=== PATIENT | female | born 1980 | race Caucasian/White ===

== ENCOUNTER → 2017-05-01 | Outpatient (CLI) | payer MEDICAID ==
[~2017-05-01] MED LIST: ALPR1T; CIPR7.5D2 RIGHT EAR; CTLP20T; DIPH-681 PO; FAMO20TA5 PO; METH5TAB PO; ONDA-42 SL; PROP40TA5 PO; TRZ50T; ZOLP10TA5 PO
[2017-05-01 13:18] LABS: BASOPHILS # (AUTO) 0.1 10^3/uL (0.0-0.1); BASOPHILS % (AUTO) 1 % (0-10); EOSINOPHILS # (AUTO) 0.1 10^3/uL (0.0-0.3); EOSINOPHILS % (AUTO) 1 % (0-10); LYMPHOCYTES # (AUTO) 1.6 X 10^3 (1.0-4.0); LYMPHOCYTES % (AUTO) 35 % (12-44); MEAN CORPUSCULAR HEMOGLOBIN 33 PG (25-34); MEAN CORPUSCULAR HGB CONC 35 G/DL (32-36); MEAN CORPUSCULAR VOLUME 92 FL (80-99); MEAN PLATELET VOLUME 9.6 FL (7.4-10.4); MONOCYTES # (AUTO) 0.3 X 10^3 (0.0-1.0); MONOCYTES % (AUTO) 6 % (0-12); NEUTROPHILS # (AUTO) 2.7 X 10^3 (1.8-7.8); NEUTROPHILS % (AUTO) 57 % (42-75); PLATELET COUNT 218 10^3/uL (130-400); RED CELL DISTRIBUTION WIDTH 12.4 % (10.0-14.5); WHITE BLOOD COUNT 4.7 10^3/uL (4.3-11.0)
[2017-05-01 13:35] LABS: ALANINE AMINOTRANSFERASE 13 U/L (0-55); ALBUMIN 4.1 GM/DL (3.2-4.5); ANION GAP 7 MMOL/L (5-14); ASPARTATE AMINO TRANSFERASE 15 U/L (5-34); BILIRUBIN,TOTAL 0.3 MG/DL (0.1-1.0); BLOOD UREA NITROGEN 9 MG/DL (7-18); BUN/CREATININE RATIO 11; CALCIUM 8.9 MG/DL (8.5-10.1); CARBON DIOXIDE 25 MMOL/L (21-32); CHLORIDE 109 MMOL/L (98-107); CREATININE SERUM 0.79 MG/DL (0.60-1.30); GFR ESTIMATED > 60; GLUCOSE 96 MG/DL (70-105); POTASSIUM 3.5 MMOL/L (3.6-5.0); SODIUM 141 MMOL/L (135-145); TOTAL PROTEIN 6.6 GM/DL (6.4-8.2)
[2017-05-01 13:56] LABS: THYROID STIMULATING HORMONE 0.31 UIU/ML (0.35-4.94)
== END ==
LOC: LAB 13:07
PROVIDERS: ATTEND Family Medicine
DX: E05.90 Thyrotoxicosis, unspecified without thyrotoxic crisis or storm (principal)
CPT/HCPCS: 36415; 80053; 84439; 84443; 85025

== ENCOUNTER → 2018-06-10 | Outpatient (CLI) | payer MEDICAID ==
[2018-06-10 11:57] LABS: ALANINE AMINOTRANSFERASE 18 U/L (0-55); ALBUMIN 4.2 GM/DL (3.2-4.5); ALKALINE PHOSPHATASE 64 U/L (40-136); BILIRUBIN,TOTAL 0.4 MG/DL (0.1-1.0); BUN/CREATININE RATIO 16; CALCIUM 8.8 MG/DL (8.5-10.1); CARBON DIOXIDE 23 MMOL/L (21-32); CHLORIDE 108 MMOL/L (98-107); GFR ESTIMATED > 60; GLUCOSE 101 MG/DL (70-105); POTASSIUM 3.8 MMOL/L (3.6-5.0); SODIUM 138 MMOL/L (135-145); TOTAL PROTEIN 6.3 GM/DL (6.4-8.2)
--- NOTE | 2018-06-10 12:59 | Diagnostic Imaging Report ---
INDICATION: Knee pain, pain below the knee cap for the past 4-5 months. TECHNIQUE: 3 views of the right knee CORRELATION STUDY: None FINDINGS: The joint spaces are maintained. The articular surfaces are smooth and preserved. There is no acute bony abnormality. Soft tissues are unremarkable. IMPRESSION: 1. Unremarkable examination of the right knee. Dictated by: Dictated on workstation # [id number]
== END ==
LOC: RAD 11:27
PROVIDERS: ATTEND Family Medicine
DX: E05.90 Thyrotoxicosis, unspecified without thyrotoxic crisis or storm (principal); M25.561 Pain in right knee
CPT/HCPCS: 36415; 73562; 80053; 84436; 84443

== ENCOUNTER 2019-04-04 04:02 | Emergency (ER) | payer MEDICAID ==
[~2019-04-04] VITALS: Ht 170.2 cm; Wt 76.2 kg
[2019-04-04] MEDS ORDERED: cefTRIAXone 1,000 MG/2.86 ml vial (IM ONLY) IM ONE (04:30)
[2019-04-04] MEDS ORDERED: LIDOCAINE 1% INJ 20 ML 20 ML VIAL INJ ONE (04:30)
[2019-04-04] MEDS ORDERED: KETOROLAC 30 MG/ML VIAL IM ONE (04:30)
--- NOTE | 2019-04-04 04:35 | ED Integumentary General ---
General Chief Complaint: Bite-Animal/Human/Insect Stated Complaint: LEFT ARM SWOLLEN Source: patient Exam Limitations: no limitations History of Present Illness Date Seen by Provider: Apr 04, 2019 Time Seen by Provider: 04:20 Initial Comments Patient presents to ER by private conveyance with chief complaint that she has some swelling in her left forearm. She has a spot in the center left forearm that she thinks maybe an insect bit her Thursday morning, yesterday. She went to the [facility] walk-in clinic and they put her on Bactrim and encourage her to use ice. 70 ice next the pain feel better. She has not used any Tylenol or ibuprofen or other NSAIDs. She says the pain woke her up around 3:00 in the morning and she was unable to get the pain under control swelling. She's been keeping it above the level of her heart. No fevers chills nausea vomiting or diarrhea. She did grape picker the antibiotics. She rates the pain as a 7 out of 10. Allergies and Home Medications Allergies Coded Allergies: Bruce Known Allergies (Unverified Allergy, Mild, 01/22/10) Home Medications Alprazolam 1 Mg Tablet, Q6H, (Reported) Ciprofloxacin Hcl/Dexameth 7.5 Ml Drops.susp, 5 DROPS RIGHT EAR BID Prescribed by: DESTINI GRAF on 05/30/151957 Diphenoxylate/Atropine 1 Ea Tablet, 1 EA PO Q6H PRN for DIARRHEA Prescribed by: DESTINI GRAF on 05/30/151957 Famotidine 20 Mg Tablet, 1 EACH PO BID Prescribed by: DESTINI GRAF on 05/30/151957 Methimazole 5 Mg Tablet, 5 MG PO DAILY, (Reported) Ondansetron Hcl 4 Mg Tab, 4-8 MG SL Q6H PRN for NAUSEA/VOMITING FOR NAUSEA AND VOMITING Prescribed by: DESTINI GRAF on 05/30/151957 Tramadol HCl 50 Mg Tablet, 50 MG PO Q6H PRN for BREAKTHROUGH PAIN Prescribed by: MERRY MINER on 04/04/19 044 Zolpidem Tartrate 10 Mg Tablet, 10 MG PO HS, (Reported) Patient Home Medication List Home Medication List Reviewed: Yes Review of Systems Review of Systems Constitutional: No chills, No diaphoresis EENTM: No hearing loss, No ear pain Respiratory: No cough, No short of breath Cardiovascular: No chest pain, No edema Gastrointestinal: No abdominal pain, No constipation, No diarrhea Genitourinary: No discharge, No dysuria Past Noytfmf-Oarxfe-Ldzdjm Hx Patient Social History Alcohol Use: Denies Use Recreational Drug Use: No Smoking Status: Current Everyday Smoker Type Used: Cigarettes (one pack per day) Recent Foreign Travel: No Contact w/Someone Who Travel: No Seasonal Allergies Seasonal Allergies: No Past Medical History Gallbladder, 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 Scoliosis Hyperthyroidism Anxiety, Depression Physical Exam Vital Signs Vital Signs - First Documented 04/04/19 04:23 Temp 97.4 Pulse 84 Resp 18 B/P (MAP) 110/75 (87) Capillary Refill : General Appearance: WD/WN, mild distress HEENT: normal ENT inspection, pharynx normal Neck: full range of motion, normal inspection Cardiovascular: normal peripheral pulses, regular rate, rhythm Respiratory: no respiratory distress, no accessory muscle use Gastrointestinal: non tender, soft Extremities: normal range of motion, normal capillary refill, swelling ((has some mild to moderate swelling and is tender to palpation. There is a small 1 mm nodule in the center of the erythema. No induration or areas of fluctuance, pointing.) Neurologic/Psychiatric: alert, normal mood/affect, oriented x 3 Progress/Results/Core Measures Results/Orders My Orders Orders - MERRY MINER Ketorolac Injection (Toradol Injection) (04/04/19 04:30) Ceftriaxone For Im Use (Rocephin For Im (04/04/19 04:30) Lidocaine 1% Inj 20 Ml (Xylocaine 1% Inj (04/04/19 04:30) Medications Given in ED Current Medications Medications Dose Ordered Sig/Estela Route Start Time Stop Time Status Last Admin Dose Admin Ceftriaxone Sodium 1,000 mg ONCE ONCE IM 04/04/19 04:30 04/04/19 04:31 DC 04/04/19 04:44 1,000 MG Ketorolac Tromethamine 60 mg ONCE ONCE IM 04/04/19 04:30 04/04/19 04:31 DC 04/04/19 04:46 60 MG Lidocaine HCl 2.1 ml ONCE ONCE INJ 04/04/19 04:30 04/04/19 04:31 DC 04/04/19 04:45 2.1 ML Vital Signs/I&O 04/04/19 04:23 Temp 97.4 Pulse 84 Resp 18 B/P (MAP) 110/75 (87) Progress Progress Note : Time: 04:33 Progress Note It's too early to declare a failure of antibiotic therapy but to help with her fears we'll give her a gram or Rocephin to help accelerate therapy and 60 mg of Toradol for pain relief. Encourage some heat to help with the treatment process. She has no decreased sensation, tingling, decreased capillary refill or other evidence distally of a compartment syndrome. Departure Impression Primary Impression: Cellulitis Qualified Codes: L03.114 - Cellulitis of left upper limb Additional Impression: Insect bite Qualified Codes: S50.862D - Insect bite (nonvenomous) of left forearm, subsequent encounter; W57.XXXD - Bitten or stung by nonvenomous insect and other nonvenomous arthropods, subsequent encounter Disposition: 01 HOME, SELF-CARE Condition: Stable Departure-Patient Inst. Decision time for Depature: 04:44 Referrals: OPHELIA NEWSOME MD (PCP/Family) Primary Care Physician Patient Instructions: Cellulitis (Skin Infection), Adult (DC) Add. Discharge Instructions: Apply heat to your forearm such as a warm moist compress as often as necessary for swelling or pain. Elevate the arm above the level of your heart. Continue to take Bactrim as prescribed. If you're still seeing rapid progression of your symptoms after 2-3 days of antibiotics and follow-up with primary care for reevaluation. Otherwise plan to see primary care in 1 week. For your pain you can use Tylenol 1000 mg every 8 hours in addition to heating pads, ibuprofen 800 mg every 8 hours and if necessary tramadol 1 tablet every 6 hours for breakthrough pain. All discharge instructions reviewed with patient and/or family. Voiced understanding. Scripts Tramadol HCl (Tramadol HCl) 50 Mg Tablet 50 MG PO Q6H PRN for BREAKTHROUGH PAIN for 3 Days, #14 TAB 0 Refills Prov: MERRY MINER 04/04/19 MERRY MINER Apr 04, 2019 04:35
[2019-04-04] MEDS ORDERED: TRAM50TA2 PO (04:44)
[2019-04-04 05:02] VITALS: BP 100/76
== END 2019-04-04 05:05 | disposition home or self-care (01) ==
LOC: EDUNIT# 04:02 → ER 04:05
DX: L03.114 Cellulitis of left upper limb (principal); S50.862D Insect bite (nonvenomous) of left forearm, subsequent encounter; M41.9 Scoliosis, unspecified; E05.90 Thyrotoxicosis, unspecified without thyrotoxic crisis or storm; F41.9 Anxiety disorder, unspecified; F32.9 Major depressive disorder, single episode, unspecified; F17.210 Nicotine dependence, cigarettes, uncomplicated; Z98.51 Tubal ligation status; W57.XXXD Bitten or stung by nonvenomous insect and other nonvenomous arthropods, subsequent encounter
CPT/HCPCS: 96372; 99284

== ENCOUNTER → 2019-04-08 | Outpatient (CLI) | payer MEDICAID ==
[~2019-04-08] MED LIST changes: +TRAM50TA2 PO
--- NOTE | 2019-04-08 14:45 | Diagnostic Imaging Report ---
PROCEDURE: US venous upper extremity left. TECHNIQUE: Multiple realtime grayscale images were obtained of left upper extremity in various projections. Additional spectral analysis and color Doppler duplex images were also obtained. INDICATION: Left upper extremity pain and swelling. Patient sustained a bug bite to the left forearm. FINDINGS: Left internal jugular vein as well as left subclavian and axillary vein are patent. The brachial vein is patent. Basilic and cephalic veins as well as the radial and ulnar veins are maintained. No thrombus is seen. No fluid collection or abscess is identified. IMPRESSION: No evidence of left upper extremity DVT. Dictated by: Dictated on workstation # [id number]
== END ==
LOC: RAD 13:26
PROVIDERS: ATTEND Family Medicine
DX: R60.0 Localized edema (principal)

== ENCOUNTER → 2021-07-16 | Outpatient (CLI) | payer BC, MEDICAID ==
[~2021-07-16] MED LIST changes: -TRAM50TA2 PO; +TRM50T PO
--- NOTE | 2021-07-16 14:19 | Diagnostic Imaging Report ---
Lumbar spine at 1145 hours. INDICATION: Chronic back pain. AP, lateral and spot lateral views were obtained. FINDINGS: The AP view does show that there is moderate levoscoliosis of the lower lumbar spine. This finding is more pronounced than noted on the prior exam of 04/23/2016. The degenerative disc and bony disease at the L4-L5 level seen previously also appears to have progressed. There is also greater narrowing of the L3-L4 disc space on the right than on the prior exam. The other intervertebral spaces are fairly well-maintained. There is no fracture or acute bony abnormality evident. There is no sign of a paraspinal mass. There is mild symmetrical sclerosis of the sacroiliac joints. IMPRESSION: 1. There is no evidence for an acute bony abnormality. 2. The levoscoliosis of the lower lumbar spine does seem more pronounced than on the prior exam. The degenerative disc and bony disease at L4-L5 and to a lesser degree at L3-L4 has also progressed. 3. If there is clinical concern regarding spinal stenosis or nerve root encroachment, then MRI would be recommended for further study. Dictated by: Dictated on workstation # [id number]
--- NOTE | 2021-07-16 15:37 | Diagnostic Imaging Report ---
INDICATION: Chronic back pain. TIME OF EXAM: 11:45 AM. TECHNIQUE: AP, lateral, and swimmer's views of the thoracic spine were obtained. FINDINGS: There is right convexity thoracic scoliotic curvature. There is straightening of the normal thoracic kyphotic curvature. The vertebral body heights are maintained. No fractures are seen. The pedicles and paraspinous line are intact. IMPRESSION: Thoracic scoliosis. No acute bony abnormality is detected. Dictated by: Dictated on workstation # [id number]
== END ==
LOC: RAD 11:23
PROVIDERS: ATTEND Family Medicine
DX: M51.36 Other intervertebral disc degeneration, lumbar region (principal); M41.84 Other forms of scoliosis, thoracic region; M41.86 Other forms of scoliosis, lumbar region
CPT/HCPCS: 72072; 72100

== ENCOUNTER 2021-08-19 10:00 | Outpatient (RCR) | payer BC | END 2021-09-03 10:49 | disposition home or self-care (01) | PROVIDERS: ATTEND Family Medicine | DX: M41.9 Scoliosis, unspecified (principal); F17.210 Nicotine dependence, cigarettes, uncomplicated | CPT/HCPCS: 97163; G0283 ==